=== PATIENT | female | born 1955 | race Caucasian/White ===

== ENCOUNTER 2022-12-29 16:22 | Emergency (ER) | payer MEDICARE | END 2022-12-29 17:34 | disposition home or self-care (01) | LOC: JP.ED 16:22 | DX: S99.921A Unspecified injury of right foot, initial encounter (principal); Z88.2 Allergy status to sulfonamides; W20.8XXA Other cause of strike by thrown, projected or falling object, initial encounter | CPT/HCPCS: 73660-26-T5; 73660-T5; 99282; 99283 ==